=== PATIENT | male | born 1975 | race African-American/Black ===

== ENCOUNTER 2017-04-05 03:25 | Inpatient (IN) | payer OTHER, MEDICAID ==
[~2017-04-05] VITALS: Ht 188 cm; Wt 104.4 kg
[2017-04-05 04:30] LABS: Basophils # (auto) 0 uL; Basophils % (auto) 0.6 % (0.0-2.0); DEFINITIVE VIEW TRANSMISSION; Eosinophils # (auto) 0.2 uL; Eosinophils % (auto) 4.6 % (0.0-7.0); Hematocrit 41.1 % (41.0-53.0); Hemoglobin 13.2 g/dL (13.5-17.5); Lymphocytes # (auto) 1.1 uL; Lymphocytes % (auto) 24.3 % (10.0-50.0); Mean Corpuscular Hemoglobin 23.3 pg (28.0-32.0); Mean Corpuscular Volume 72.9 fL (80.0-100.0); Mean Platelet Volume 10.1 fL (7.4-10.4); Monocytes # (auto) 0.3 uL; Monocytes % (auto) 7.2 % (0.0-12.0); Neutrophils # (auto) 2.9 uL; Neutrophils % (auto) 63.3 % (37.0-80.0); Platelet Count (auto) 220 10^3/uL (140-450); SUSPECT VIEW TRANSMISSION; White Blood Cell 4.5 10^3/uL (4.4-10.8)
[2017-04-05] MEDS ORDERED: SODIUM CHLORIDE 0.9% 1,000 ML IVB ONE (04:35)
[2017-04-05] MEDS ORDERED: LORazepam 2MG/ML-1ML VIAL IV ONE (04:45)
[2017-04-05 04:57] LABS: Albumin 3.5 g/dL (3.4-5.0); Bilirubin, Total 0.4 mg/dL (0.2-1.0); Calcium 8.6 mg/dL (8.5-10.1); Potassium 3.5 mmol/L (3.5-5.1)
[2017-04-05] MEDS ORDERED: LABETALOL HCL 5 MG/ML 4ML SYRINGE IV ONE ×2 (05:15→10:15)
[2017-04-05 05:33] LABS: Magnesium 2.1 mg/dL (1.6-2.6)
[2017-04-05 05:40] LABS: B-Type Natriuretic Peptide 47.78 pg/mL (0-100)
[2017-04-05 05:41] LABS: Temperature: 21.4 C (20.0-25.0)
[2017-04-05] MEDS ORDERED: hydrALAZINE HCL 20 MG/ML VL IV ONE (05:45)
[2017-04-05] MEDS ORDERED: cloNIDine HCL 0.1 MG TAB PO ONE (06:45)
[2017-04-05] MEDS ORDERED: LEVETIRACETAM INJ 1,000 MG in SODIUM CHL 0.9% 100 ML IV ONE (08:00)
[2017-04-05 08:46] LABS: Urine Bilirubin Negative (Negative); Urine Color Yellow (Yellow); Urine Glucose Normal (Normal); Urine Ketone Negative (Negative); Urine Nitrite Negative (Negative); Urine RBC 3 /hpf (0 - 3); Urine Urobilinogen Normal (Negative)
[2017-04-05 08:47] LABS: Urine Blood 1+ /uL (Negative)
[2017-04-05] MEDS ORDERED: TEMAZEPAM 15 MG CAP PO PRN (09:15)
[2017-04-05] MEDS ORDERED: ONDANSETRON HCL 4 MG/2 ML VIAL IV PRN (09:15)
[2017-04-05] MEDS ORDERED: NITROGLYCERIN 0.4 MG SL TAB SL PRN (09:15)
[2017-04-05] MEDS ORDERED: ACETAMINOPHEN 500 MG TAB PO PRN (09:15)
[2017-04-05] MEDS ORDERED: LACTULOSE 20Gm/30ML SOLN PO PRN (09:15)
[2017-04-05] MEDS ORDERED: LORazepam 2MG/ML-1ML VIAL IV PRN (09:15)
[2017-04-05] MEDS ORDERED: LORazepam 0.5 MG TAB PO PRN (09:15)
[2017-04-05] MEDS ORDERED: MORPHINE SULF INJ 2 MG/ML SYRINGE 1ML IV PRN ×2 (09:15)
[2017-04-05] MEDS ORDERED: HYDROcodone-ACET 5/325MG TAB PO PRN (09:15)
[2017-04-05] MEDS ORDERED: LEVETIRACETAM 500 MG TAB PO SCH (10:00)
[2017-04-05] MEDS ORDERED: LABETALOL HCL 5 MG/ML 4ML SYRINGE IV PRN (10:15)
[2017-04-05] MEDS ORDERED: LISINOPRIL 10 MG TAB PO ONE (10:15)
[2017-04-05] MEDS ORDERED: LABETALOL HCL 200 MG TAB PO ONE (10:15)
[2017-04-05] MEDS ORDERED: ASPirin 81 mg TAB PO ONE (10:15)
[2017-04-05] MEDS: SODIUM CHLORIDE 0.9% 1,000 ML IV SCH ×2 (10:31→22:01)
[2017-04-05] MEDS ORDERED: PHENYTOIN IV DILANTIN 1,000 MG in SODIUM CHL 0.9% 250 ML IV ONE (12:00)
[2017-04-05 12:15] LABS: Cholesterol 109 mg/dL (< 200); HDL Cholesterol 56 mg/dL (40-59); LDL Cholesterol 52 mg/dL (< 100); Triglycerides 33 mg/dL (< 150)
[2017-04-05 12:30] VITALS: BP 153/91
[2017-04-05 17:29] VITALS: BP 153/95
[2017-04-05 18:35] VITALS: BP 153/91
[2017-04-05] MEDS: ATORVASTATIN 20 MG TAB PO SCH (21:59)
[2017-04-05 22:00] VITALS: BP 148/95
[2017-04-05] MEDS: LABETALOL HCL 200 MG TAB PO SCH (22:00)
[2017-04-05] MEDS: PHENYTOIN SODIUM 100 MG CAP PO SCH (22:00)
[2017-04-06] VITALS (9 sets, daily range): BP systolic 145–188; BP diastolic 72–125
[2017-04-06 06:29] LABS: Cholesterol 95 mg/dL (< 200); HDL Cholesterol 50 mg/dL (40-59); LDL Cholesterol 45 mg/dL (< 100); Triglycerides 50 mg/dL (< 150)
[2017-04-06] MEDS ORDERED: LISINOPRIL 10 MG TAB PO SCH (10:00)
[2017-04-06] MEDS ORDERED: ASPirin 81 mg TAB PO SCH (10:00)
[2017-04-06] MEDS ORDERED: NITROGLYCERIN 0.2MG/HR TOPICAL PATCH TD SCH (10:00)
[2017-04-06] MEDS: LABETALOL HCL 200 MG TAB PO SCH ×2 (11:27→20:59)
[2017-04-06] MEDS: LABETALOL HCL 5 MG/ML 4ML SYRINGE IV PRN ×3 (12:00→22:33)
[2017-04-06] MEDS ORDERED: cloNIDine HCL 0.1 MG TAB PO PRN (17:00)
[2017-04-06] MEDS ORDERED: amLODIPine BESYLATE 5 MG TAB PO ONE (18:00)
[2017-04-06] MEDS: ATORVASTATIN 20 MG TAB PO SCH (20:58)
[2017-04-06] MEDS: PHENYTOIN SODIUM 100 MG CAP PO SCH (20:58)
[2017-04-07] MEDS ORDERED: amLODIPine BESYLATE 5 MG TAB PO SCH (10:00)
== END 2017-04-06 22:25 | disposition short-term general hospital (02) | DRG 101 ==
LOC: ER 03:25 → TELE 03:26 → TELE-WESTW 11:27
PROVIDERS: ADMIT Internal Medicine; ATTEND Internal Medicine
DX: G40.901 Epilepsy, unspecified, not intractable, with status epilepticus (principal); R45.851 Suicidal ideations; I69.351 Hemiplegia and hemiparesis following cerebral infarction affecting right dominant side; E78.5 Hyperlipidemia, unspecified; F12.90 Cannabis use, unspecified, uncomplicated; F17.200 Nicotine dependence, unspecified, uncomplicated; F32.9 Major depressive disorder, single episode, unspecified; I11.9 Hypertensive heart disease without heart failure; Z96.643 Presence of artificial hip joint, bilateral; M19.90 Unspecified osteoarthritis, unspecified site; I16.0 Hypertensive urgency; H53.461 Homonymous bilateral field defects, right side; Z82.49 Family history of ischemic heart disease and other diseases of the circulatory system; Z82.3 Family history of stroke
CPT/HCPCS: 36415; 70450; 71010; 80053; 80061; 80185; 80307; 81001; 82550; 82962; 83735; 83880; 84484; 85025; 85652; 86141; 93005; 93306; 95819; 96361; 96365; 96375; 96376; J3490